=== PATIENT | male | born 1990 | race Hispanic/Latino ===

== ENCOUNTER 2019-03-05 08:04 | Inpatient (IN) | payer SELFPAY ==
[~2019-03-05] VITALS: Ht 157.5 cm; Wt 63.5 kg
[2019-03-05 08:41] LABS: APPEARANCE,URINE Clear (CLEAR); BILIRUBIN,URINE Negative (NEGATIVE); COLOR,URINE Yellow (YELLOW); GLUCOSE, URINE (UA) Negative (NEGATIVE); KETONES,URINE >=80 mg/dL (NEGATIVE); LEUKOCYTE ESTERASE ,URINE Negative (NEGATIVE); NITRATE,URINE Negative (NEGATIVE); OCCULT BLOOD,URINE Negative (NEGATIVE); PH,URINE >=9.0 (5.0-8.0); PROTEIN,URINE Negative (NEGATIVE); UROBILINOGEN,URINE 0.2 mg/dL (0.2-1.0)
[2019-03-05] MEDS ORDERED: FAMOTIDINE/PF 20 MG/2 ML VIAL IV ONE (08:46)
[2019-03-05] MEDS ORDERED: SODIUM CHLORIDE 0.9% 1000ML 1,000 ML IV ONE ×2 (08:47→10:17)
[2019-03-05 08:49] LABS: AMPHET/METH SCREEN,URINE NEGATIVE (NEGATIVE); BARBITURATE SCREEN, URINE NEGATIVE (NEGATIVE); BENZODIAZEPINES SCREEN,URINE NEGATIVE (NEGATIVE); CANNABINOID SCREEN,URINE POSITIVE (NEGATIVE); COCAINE SCREEN,URINE NEGATIVE (NEGATIVE); OPIATE SCREEN,URINE NEGATIVE (NEGATIVE); PHENCYCLIDINE SCREEN,URINE NEGATIVE (NEGATIVE)
[2019-03-05 08:49] LABS: BASOPHILS % (AUTO) 0.8 % (0.0-5.0); EOSINOPHILS % (AUTO) 1.2 % (0.0-8.0); HEMATOCRIT 45.1 % (42-54); LYMPHOCYTES % (AUTO) 8.5 % (21.0-51.0); MEAN CORPUSCULAR HEMOGLOBIN 30.8 pg (27.0-33.0); MEAN CORPUSCULAR HGB CONC 33.6 g/dL (32.0-36.0); MEAN CORPUSCULAR VOLUME 91.6 fL (79-99); MONOCYTES % (AUTO) 3.4 % (3.0-13.0); NEUTROPHILS % (AUTO) 86.1 % (40.0-77.0); PLATELET COUNT (AUTO) 307 K/uL (130-400); RED BLOOD CELL COUNT(AUTO) 4.93 MIL/uL (4.50-6.20); RED CELL DISTRIBUTION WIDTH 13.6 % (11.0-15.5); WHITE BLOOD COUNT (AUTO) 24.4 K/uL (4.8-10.8)
[2019-03-05 08:50] LABS: BACTERIA,URINE Rare /HPF (None Seen); RBC,URINE 0-1 /HPF (0-1); SQUAMOUS EPITHELIAL CELL,UR Rare /HPF (0-2); WBC,URINE 0-1 /HPF (0-1)
[2019-03-05 09:00] LABS: CREATININE 0.9 mg/dL (0.5-1.5); POTASSIUM 3.1 mmol/L (3.5-5.1)
[2019-03-05 09:05] LABS: ALBUMIN 4.7 g/dL (3.5-5.0); BILIRUBIN,TOTAL 0.5 mg/dL (0.2-1.0); TOTAL PROTEIN, SERUM 7.9 g/dL (6.0-8.3)
[2019-03-05] MEDS ORDERED: HYOSCYAMINE SULFATE 0.125 MG TAB.SUBL SL ONE (10:17)
[2019-03-05] MEDS ORDERED: FLU VACC QS2019-20 36MOS UP/PF 60 MCG/0.5 ML ML IM ONE (18:15)
[2019-03-05] MEDS ORDERED: FLU VACC QS2019-20 36MOS UP/PF 60 MCG/0.5 ML ML IM SCH (18:15)
[2019-03-05] MEDS ORDERED: ACETAMINOPHEN EXTRA STRENGTH 500 MG TABLET PO PRN (18:30)
[2019-03-05 18:31] VITALS: BP 133/75
[2019-03-05] MEDS: NS-20 MEQ KCL 1000ML 1,000 ML IV SCH (18:31)
[2019-03-05] MEDS: POLYETHYLENE GLYCOL 3350 17 GM POWD.PACK PO SCH (18:31)
[2019-03-05] MEDS: CEFTRIAXONE SODIUM 2 GM VIAL IVP SCH (19:24)
[2019-03-05 20:15] VITALS: BP 153/81
[2019-03-05] MEDS: FAMOTIDINE/PF 20 MG/2 ML VIAL IV SCH (21:49)
[2019-03-05] MEDS: PROMETHAZINE HCL 25 MG/ML 1ML AMPULE IM PRN (22:27)
[2019-03-06 00:34] VITALS: BP 137/87
[2019-03-06 04:48] VITALS: BP 113/56
[2019-03-06 05:21] LABS: HEMATOCRIT 42.5 % (42-54); MEAN CORPUSCULAR HEMOGLOBIN 31.2 pg (27.0-33.0); MEAN CORPUSCULAR HGB CONC 34.3 g/dL (32.0-36.0); PLATELET COUNT (AUTO) 296 K/uL (130-400); RED BLOOD CELL COUNT(AUTO) 4.67 MIL/uL (4.50-6.20); RED CELL DISTRIBUTION WIDTH 13.6 % (11.0-15.5); WHITE BLOOD COUNT (AUTO) 17.3 K/uL (4.8-10.8)
[2019-03-06 05:34] LABS: CREATININE 0.8 mg/dL (0.5-1.5); POTASSIUM 3.4 mmol/L (3.5-5.1)
[2019-03-06 08:00] VITALS: BP 121/73
[2019-03-06] MEDS ORDERED: PANTOPRAZOLE SODIUM 40 MG TABLET.DR PO SCH (08:45)
[2019-03-06] MEDS: FAMOTIDINE/PF 20 MG/2 ML VIAL IV SCH ×2 (09:23→20:09)
[2019-03-06] MEDS: METOCLOPRAMIDE 10 MG/2 ML VIAL IVP SCH ×2 (09:23→20:08)
[2019-03-06] MEDS: ENOXAPARIN SODIUM 40 MG/0.4 ML SYRINGE SQ SCH (09:24)
[2019-03-06 11:00] VITALS: BP 107/73
[2019-03-06] MEDS: AMOXICILLIN 500 MG CAPSULE PO SCH ×2 (11:35→20:08)
[2019-03-06] MEDS: CLARITHROMYCIN 500 MG TABLET PO SCH ×2 (11:35→20:09)
[2019-03-06] MEDS: NS-20 MEQ KCL 1000ML 1,000 ML IV SCH ×2 (11:35→18:36)
[2019-03-06] MEDS: PROMETHAZINE HCL 25 MG/ML 1ML AMPULE IM PRN ×2 (12:49→20:08)
--- NOTE | 2019-03-06 12:52 | NUR ---
pt vomited a small amount of green emesis aprox. 50cc, phenergan im given.
[2019-03-06 16:00] VITALS: BP 126/67
[2019-03-06] MEDS: POLYETHYLENE GLYCOL 3350 17 GM POWD.PACK PO SCH (18:08)
--- NOTE | 2019-03-06 18:24 | NUR ---
tanmay note pt resides with spouse, independent with adls and ambulation. no dme. dc plan is back to home. paris huitron info provided. Addendum: 03/06/19 at 1826 by HARVEY ALCALA CM Amended: Links added.
[2019-03-06] MEDS: CEFTRIAXONE SODIUM 2 GM VIAL IVP SCH (18:31)
[2019-03-06 20:03] VITALS: BP 130/70
[2019-03-07] VITALS (7 sets, daily range): BP systolic 108–155; BP diastolic 60–94
[2019-03-07 05:41] LABS: BASOPHILS % (AUTO) 0.5 % (0.0-5.0); EOSINOPHILS % (AUTO) 0.4 % (0.0-8.0); HEMATOCRIT 38.8 % (42-54); LYMPHOCYTES % (AUTO) 22.7 % (21.0-51.0); MEAN CORPUSCULAR HEMOGLOBIN 31.5 pg (27.0-33.0); MEAN CORPUSCULAR HGB CONC 33.9 g/dL (32.0-36.0); MEAN CORPUSCULAR VOLUME 92.9 fL (79-99); NEUTROPHILS % (AUTO) 69.4 % (40.0-77.0); NUCLEATED RED BLOOD CELLS 0.1 % (0.0-0.19); PLATELET COUNT (AUTO) 223 K/uL (130-400); RED BLOOD CELL COUNT(AUTO) 4.18 MIL/uL (4.50-6.20); RED CELL DISTRIBUTION WIDTH 13.8 % (11.0-15.5); WHITE BLOOD COUNT (AUTO) 10.1 K/uL (4.8-10.8)
[2019-03-07 05:53] LABS: CREATININE 0.8 mg/dL (0.5-1.5)
[2019-03-07] MEDS: AMOXICILLIN 500 MG CAPSULE PO SCH ×2 (10:26→19:46)
[2019-03-07] MEDS: CLARITHROMYCIN 500 MG TABLET PO SCH ×2 (10:26→19:46)
[2019-03-07] MEDS: FAMOTIDINE/PF 20 MG/2 ML VIAL IV SCH ×2 (10:27→19:45)
[2019-03-07] MEDS: METOCLOPRAMIDE 10 MG/2 ML VIAL IVP SCH ×2 (10:27→19:45)
[2019-03-07] MEDS: ENOXAPARIN SODIUM 40 MG/0.4 ML SYRINGE SQ SCH (11:59)
[2019-03-07] MEDS: NS-20 MEQ KCL 1000ML 1,000 ML IV SCH (11:59)
--- NOTE | 2019-03-07 14:35 | NUR ---
PATIENT NOT TOLERATING ORAL DIET PATIENT RECIEVED FULL LIQUID TRAY. APPROXIMATELY 10 MINUTES AFTER EATING, PATIENT REPORTS NAUSEA AND SEVERE "THROBBING HEADACHE". INFORMED DR. SETHI. ORDERED CT HEAD. PATIENT GIVEN MORPHINE 2MG IV AND PHENERGAN 25MG IM.
[2019-03-07] MEDS: PROMETHAZINE HCL 25 MG/ML 1ML AMPULE IM PRN (14:54)
[2019-03-07] MEDS ORDERED: MORPHINE SULFATE 2 MG/ML 1ML SYG IVP SCH (15:00)
--- NOTE | 2019-03-07 15:00 | NUR ---
SYMPTOMS PATIENT VOMITED DESPITE AND REPORTS HEADACHE IS SEVERE. VITAL SIGNS ARE STABLE. PATIENT IS IN VISIBLE DISTRESS, CRYING, GROANING. PATIENT REPORTS TINGLING TO TOES AND FINGERS, THEN PATIENT STATES HE CANT MOVE RIGHT HAND. INFORMED DR. SETHI AND ORDERED TO GET CT HEAD DONE STAT WITHOUT CONTRAST. CALLED RADIOLOGY [address] HEAD HAS TO BE DONE WITHOUT CONTRAST AND PATIENT HAS TO BE TAKEN DOWN NOW AND WAS TOLD "WE HAVE A LOT OF STAT ORDERS RIGHT NOW." INFORMED DIRECTOR MELINA OF THIS ISSUE.
[2019-03-07] MEDS: MORPHINE SULFATE 2 MG/ML 1ML SYG IVP PRN ×2 (15:04→19:46)
[2019-03-07] MEDS ORDERED: LORAZEPAM 2 MG/ML 1 ML VIAL ONE (15:27)
[2019-03-07] MEDS ORDERED: CALCIUM GLUCONATE 1 GM in SODIUM CHLORIDE 0.9% 50 ML IV PRN (15:30)
--- NOTE | 2019-03-07 15:30 | NUR ---
ATIVAN PATIENT APPEARS ANXIOUS DUE TO CONTINUED HEADACHE AND NAUSEA. DR. SETHI ORDERED TO GIVEN ONE TIME DOSE OF ATIVAN 1 MG IV.
[2019-03-07] MEDS ORDERED: LORAZEPAM 2 MG/ML 1 ML VIAL IM STA (15:40)
--- NOTE | 2019-03-07 16:00 | NUR ---
PATIENT RETURN TO FLOOR PATIENT RETURNED FROM CT HEAD PROCEDURE. PATIENT RECONNECTED TO IV FLUIDS. PATIENT REPORTS HEADACHE STILL PRESENT, BUT FEELS ONLY A LITTLE BETTER. INFORMED PATIENT MD ORDERED TO KEEP PATIENT NPO, PATIENT VERBALIZED UNDERSTANDING. WILL CONTINUE TO MONITOR.
[2019-03-07 16:06] LABS: HEMATOCRIT 43.8 % (42-54); MEAN CORPUSCULAR HEMOGLOBIN 31.2 pg (27.0-33.0); MEAN CORPUSCULAR HGB CONC 34.3 g/dL (32.0-36.0); PLATELET COUNT (AUTO) 260 K/uL (130-400); RED BLOOD CELL COUNT(AUTO) 4.81 MIL/uL (4.50-6.20); RED CELL DISTRIBUTION WIDTH 13.5 % (11.0-15.5); WHITE BLOOD COUNT (AUTO) 12.1 K/uL (4.8-10.8)
[2019-03-07 16:16] LABS: MAGNESIUM 1.9 mg/dL (1.80-2.40)
--- NOTE | 2019-03-07 16:45 | NUR ---
PATIENT ASLEEP PATIENT IS ASLEEP IN BED, I WOKE UP PATIENT TO SEE HOW HE FEELS AND PATIENTS REPLIED "I FEEL ONLY A LITTLE BETTER, NOT THROWING UP MUCH ANYMORE. MY HEADACHE IS STILL THERE."
[2019-03-07] MEDS ORDERED: BUTALB/ACETAMINOPHEN/CAFFEINE 1 EACH TABLET PO PRN (18:00)
[2019-03-07] MEDS ORDERED: BUTALB/ACETAMINOPHEN/CAFFEINE 1 EACH TABLET PO ONE (18:05)
[2019-03-07] MEDS: POLYETHYLENE GLYCOL 3350 17 GM POWD.PACK PO SCH (18:30)
[2019-03-07] MEDS ORDERED: METOCLOPRAMIDE 10 MG/2 ML VIAL IVP SCH (19:15)
[2019-03-07] MEDS: CEFTRIAXONE SODIUM 2 GM VIAL IVP SCH (21:36)
[2019-03-08 03:30] VITALS: BP 110/56
[2019-03-08 05:10] LABS: BASOPHILS % (AUTO) 0.5 % (0.0-5.0); EOSINOPHILS % (AUTO) 0.1 % (0.0-8.0); HEMATOCRIT 40.7 % (42-54); LYMPHOCYTES % (AUTO) 24.4 % (21.0-51.0); MEAN CORPUSCULAR HEMOGLOBIN 31.1 pg (27.0-33.0); MEAN CORPUSCULAR HGB CONC 34.1 g/dL (32.0-36.0); MEAN CORPUSCULAR VOLUME 91.3 fL (79-99); MONOCYTES % (AUTO) 7.1 % (3.0-13.0); NEUTROPHILS % (AUTO) 67.9 % (40.0-77.0); PLATELET COUNT (AUTO) 271 K/uL (130-400); RED BLOOD CELL COUNT(AUTO) 4.46 MIL/uL (4.50-6.20); RED CELL DISTRIBUTION WIDTH 13.4 % (11.0-15.5); WHITE BLOOD COUNT (AUTO) 11.9 K/uL (4.8-10.8)
[2019-03-08 05:24] LABS: CARBON DIOXIDE 23 mmol/L (21-32); CHLORIDE 106 mmol/L (101-111); CREATININE 0.9 mg/dL (0.5-1.5); GLOMERULAR FILTR. RATE CALC 106 mL/min (>60); GLUCOSE,RANDOM 80 mg/dL (70-105); POTASSIUM 4.1 mmol/L (3.5-5.1); SODIUM SERUM 142 mmol/L (136-145); UREA NITROGEN, BLOOD 9 mg/dL (7-18)
[2019-03-08 08:02] VITALS: BP 121/75
[2019-03-08] MEDS: METOCLOPRAMIDE 10 MG/2 ML VIAL IVP SCH ×2 (12:06→19:43)
[2019-03-08] MEDS: FAMOTIDINE/PF 20 MG/2 ML VIAL IV SCH (12:06)
[2019-03-08 12:08] VITALS: BP 128/65
[2019-03-08] MEDS: ENOXAPARIN SODIUM 40 MG/0.4 ML SYRINGE SQ SCH (12:10)
[2019-03-08] MEDS: CLARITHROMYCIN 500 MG TABLET PO SCH (12:11)
[2019-03-08] MEDS: AMOXICILLIN 500 MG CAPSULE PO SCH (12:11)
[2019-03-08] MEDS: SUCRALFATE 1 GM/10 ML PO SCH ×2 (15:00→19:46)
[2019-03-08 16:26] VITALS: BP 132/80
[2019-03-08] MEDS: PHARMACY COMMUNICATION MISC SCH ×2 (16:30→22:22)
[2019-03-08] MEDS: POLYETHYLENE GLYCOL 3350 17 GM POWD.PACK PO SCH (18:30)
[2019-03-08] MEDS: DEXTROSE 5 % AND 0.9 % NACL 1,000 ML IV SCH (18:32)
[2019-03-08 19:07] VITALS: BP 132/69
[2019-03-08] MEDS: PANTOPRAZOLE SODIUM 40 MG TABLET.DR PO SCH (19:43)
[2019-03-08] MEDS: CEFTRIAXONE SODIUM 2 GM VIAL IVP SCH (19:43)
[2019-03-08 23:36] VITALS: BP 124/69
[2019-03-09] MEDS: DEXTROSE 5 % AND 0.9 % NACL 1,000 ML IV SCH ×3 (00:02→22:01)
[2019-03-09] MEDS: SUCRALFATE 1 GM/10 ML PO SCH ×4 (02:25→22:00)
[2019-03-09 03:36] VITALS: BP 112/63
[2019-03-09 05:14] LABS: BASOPHILS % (AUTO) 0.9 % (0.0-5.0); HEMATOCRIT 39.3 % (42-54); MEAN CORPUSCULAR HEMOGLOBIN 31.8 pg (27.0-33.0); MEAN CORPUSCULAR HGB CONC 34.8 g/dL (32.0-36.0); MEAN CORPUSCULAR VOLUME 91.5 fL (79-99); MONOCYTES % (AUTO) 9.1 % (3.0-13.0); NUCLEATED RED BLOOD CELLS 0.1 % (0.0-0.19); PLATELET COUNT (AUTO) 250 K/uL (130-400); RED BLOOD CELL COUNT(AUTO) 4.29 MIL/uL (4.50-6.20); RED CELL DISTRIBUTION WIDTH 13.4 % (11.0-15.5); WHITE BLOOD COUNT (AUTO) 6.9 K/uL (4.8-10.8)
[2019-03-09 06:05] LABS: CREATININE 0.9 mg/dL (0.5-1.5)
[2019-03-09 07:53] VITALS: BP 121/78
[2019-03-09] MEDS: PHARMACY COMMUNICATION MISC SCH (08:04)
[2019-03-09] MEDS: METOCLOPRAMIDE 10 MG/2 ML VIAL IVP SCH ×2 (08:12→22:01)
[2019-03-09] MEDS: PANTOPRAZOLE SODIUM 40 MG TABLET.DR PO SCH ×2 (08:12→22:00)
[2019-03-09] MEDS: ENOXAPARIN SODIUM 40 MG/0.4 ML SYRINGE SQ SCH (08:13)
[2019-03-09 11:42] VITALS: BP 127/86
[2019-03-09] MEDS ORDERED: DICYCLOMINE HCL 20 MG TAB PO PRN (11:45)
[2019-03-09 16:33] VITALS: BP 136/91
[2019-03-09] MEDS: CEFTRIAXONE SODIUM 2 GM VIAL IVP SCH (19:50)
[2019-03-09 20:00] VITALS: BP 122/82
[2019-03-09] MEDS ORDERED: ALPRAZOLAM 0.25 MG TABLET ONE (22:25)
--- NOTE | 2019-03-09 22:26 | NUR ---
ANXIETY C/O ANXIETY, PER PATIENT GETS ANXIETY ATTACKS AT HOME DESCRIBED PER PATIENT, TEMP 98.4, PULSE 92, RESP 20, B/P 159/96, SAT 100 % ON R/A, CALLED [facility] FLOORPERSON FROYLAN Smith WITH ORDERS, XANAX 0.25 MG PO GIVEN
[2019-03-09] MEDS ORDERED: ALPRAZOLAM 0.25 MG TABLET PO PRN (22:30)
--- NOTE | 2019-03-09 23:25 | NUR ---
MED EFFECT PATIENT RESTING COMFORTABLY, IVF INFUSING WELL
[2019-03-10] VITALS (8 sets, daily range): BP systolic 124–143; BP diastolic 69–91
[2019-03-10] MEDS: PHARMACY COMMUNICATION MISC SCH ×4 (00:21→23:56)
[2019-03-10] MEDS: SUCRALFATE 1 GM/10 ML PO SCH ×4 (03:35→20:24)
[2019-03-10 05:17] LABS: BASOPHILS % (AUTO) 0.6 % (0.0-5.0); EOSINOPHILS % (AUTO) 1.9 % (0.0-8.0); LYMPHOCYTES % (AUTO) 46.9 % (21.0-51.0); MEAN CORPUSCULAR HEMOGLOBIN 31.5 pg (27.0-33.0); MEAN CORPUSCULAR HGB CONC 34.8 g/dL (32.0-36.0); MEAN CORPUSCULAR VOLUME 90.4 fL (79-99); MONOCYTES % (AUTO) 7.7 % (3.0-13.0); NEUTROPHILS % (AUTO) 42.9 % (40.0-77.0); NUCLEATED RED BLOOD CELLS 0.1 % (0.0-0.19); PLATELET COUNT (AUTO) 263 K/uL (130-400); RED CELL DISTRIBUTION WIDTH 13.3 % (11.0-15.5); WHITE BLOOD COUNT (AUTO) 6.9 K/uL (4.8-10.8)
[2019-03-10 05:31] LABS: CREATININE 0.8 mg/dL (0.5-1.5); MAGNESIUM 1.8 mg/dL (1.80-2.40); POTASSIUM 3.2 mmol/L (3.5-5.1)
[2019-03-10] MEDS: DEXTROSE 5 % AND 0.9 % NACL 1,000 ML IV SCH ×2 (07:00→17:49)
[2019-03-10] MEDS: METOCLOPRAMIDE 10 MG/2 ML VIAL IVP SCH ×2 (08:49→20:26)
[2019-03-10] MEDS: ENOXAPARIN SODIUM 40 MG/0.4 ML SYRINGE SQ SCH (08:49)
[2019-03-10] MEDS: PANTOPRAZOLE SODIUM 40 MG TABLET.DR PO SCH ×2 (08:49→20:24)
[2019-03-10] MEDS ORDERED: CHLORDIAZEPOXIDE HCL 5 MG CAPSULE PO PRN (13:00)
[2019-03-10] MEDS ORDERED: NICOTINE 21 MG/ 24 HR PATCH TD ONE (15:18)
[2019-03-10] MEDS: METRONIDAZOLE 500 MG TABLET PO SCH ×2 (15:19→20:24)
[2019-03-10] MEDS: NICOTINE 21 MG/ 24 HR PATCH TD SCH (15:21)
--- NOTE | 2019-03-10 15:45 | NUR ---
Nutrition intervention: Nutrition notification for LOS x5. pt admitted for intractable n/v, gastritis, bradycardia. Pt currently on full liquid diet with good po intake. Pt reports he continues to have belching but feels good every time he does. N/V is resolving. Pt reports no diarrhea as of today. Pt with multiple questions on tips of how to stop smoking. Spoke to pt's RN-Brown, about pt's questions and concerns. RN to address concerns with pt. Recommendations: When medically feasible, advance diet therapy to GI Soft/bland diet for optimal nutritional therapy. Consult RD as nutrition concerns arise. Addendum: 03/10/19 at [address] Amended: Links added.
[2019-03-10] MEDS: CEFTRIAXONE SODIUM 2 GM VIAL IVP SCH (18:19)
[2019-03-11] MEDS: SUCRALFATE 1 GM/10 ML PO SCH ×2 (02:49→10:19)
[2019-03-11] MEDS: DEXTROSE 5 % AND 0.9 % NACL 1,000 ML IV SCH (02:51)
[2019-03-11 04:00] VITALS: BP 130/83
[2019-03-11] MEDS: METRONIDAZOLE 500 MG TABLET PO SCH (04:31)
[2019-03-11 07:28] VITALS: BP 139/73
[2019-03-11] MEDS: ENOXAPARIN SODIUM 40 MG/0.4 ML SYRINGE SQ SCH (09:00)
[2019-03-11] MEDS: PANTOPRAZOLE SODIUM 40 MG TABLET.DR PO SCH (10:19)
[2019-03-11] MEDS: NICOTINE 21 MG/ 24 HR PATCH TD SCH (10:19)
[2019-03-11] MEDS: METOCLOPRAMIDE 10 MG/2 ML VIAL IVP SCH (10:21)
[2019-03-11] MEDS ORDERED: METR-172 PO (10:24)
[2019-03-11] MEDS ORDERED: HYDR-3421 PO (10:24)
[2019-03-11] MEDS ORDERED: OMEP10CA5 PO (10:24)
[2019-03-11 10:49] VITALS: BP 152/96
--- NOTE | 2019-03-11 11:50 | NUR ---
DISCHARGE DISCHARGE TEACHING PROVIDED TO PATIENT REGARDING RX (OMEPRAZOLE, HYDROXYZINE, FLAGYL), H. PYLORI CARE AT HOME, SMOKING CESSATION, N/V CARE AT HOME, SOFT/BLAND DIET. INSTRUCTED PATIENT TO SCHEDULE 2 WEEK FOLLOW UP APPOINTMENT WITH PRIMARY MD. PATIENT VERBALIZED UNDERSTANDING OF DISCHARGE TEACHING. PATIENT REPORTS TOLERATING ORAL DIET WELL, IS HAVING NORMAL AND SOFT BOWEL MOVEMENTS, AND NO NAUSEA/VOMITING EPISODES. REMOVED 20G IV FROM RIGHT AC, CATHETER TIP INTACT. PATIENT STATES HE HAS PRIVATE VEHICLE IN HOSPITAL PARKING LOT AND WILL DRIVE HIMSELF HOME. PATIENT IS ALERT AND ORIENTED TO PERSON, PLACE, AND TIME, ABLE TO WALK INDEPENDENTLY, APPEARS COMFORTABLE AND AT EASE AND PATIENT ALSO REPORTS NO DISCOMFORTS. I FEEL COMFORTABLE WITH ALLOWING PATIENT TO DRIVE HIMSELF HOME
== END 2019-03-11 12:00 | disposition home or self-care (01) | DRG 392 ==
LOC: EDH 08:04 → EDHIP 08:05 → OBSVTOIN 08:05 → 4AH 16:53
PROVIDERS: ADMIT Family Medicine; ATTEND Family Medicine
DX: R10.13 Epigastric pain (principal); E86.9 Volume depletion, unspecified; D72.829 Elevated white blood cell count, unspecified; F41.9 Anxiety disorder, unspecified; Z72.0 Tobacco use; F12.10 Cannabis abuse, uncomplicated
CPT/HCPCS: 36415; 70450; 71045; 74176; 76700; 80048; 80053; 80305; 81001; 82150; 83605; 83630; 83690; 83735; 84145; 85025; 85027; 86677; 87040; 87046; 87804; G0378; J0610; J0696; J1650; J2060; J2550; J2765; J3480; J3490; J7030; J7042; Q2035

== ENCOUNTER 2019-05-16 04:22 | Inpatient (IN) | payer SELFPAY ==
[~2019-05-16] VITALS: Ht 157.5 cm; Wt 55.4 kg
[~2019-05-16 04:22] MED LIST: HYDR-3421 PO; METR-172 PO; OMEP10CA5 PO
[2019-05-16 05:05] LABS: BASOPHILS % (AUTO) 0.4 % (0.0-5.0); EOSINOPHILS % (AUTO) 1.3 % (0.0-8.0); HEMATOCRIT 46.3 % (42-54); LYMPHOCYTES % (AUTO) 25.7 % (21.0-51.0); MEAN CORPUSCULAR HEMOGLOBIN 30.9 pg (27.0-33.0); MEAN CORPUSCULAR VOLUME 88.2 fL (79-99); NEUTROPHILS % (AUTO) 67.1 % (40.0-77.0); PLATELET COUNT (AUTO) 358 K/uL (130-400); RED BLOOD CELL COUNT(AUTO) 5.25 MIL/uL (4.50-6.20); RED CELL DISTRIBUTION WIDTH 13.1 % (11.0-15.5)
[2019-05-16] MEDS ORDERED: SODIUM CHLORIDE 0.9% 1000ML 1,000 ML IV ONE ×3 (05:08→08:53)
[2019-05-16 05:17] LABS: POTASSIUM 3.2 mmol/L (3.5-5.1)
[2019-05-16 05:21] LABS: ALBUMIN 4.5 g/dL (3.5-5.0); BILIRUBIN,TOTAL 0.4 mg/dL (0.2-1.0)
[2019-05-16] MEDS ORDERED: ONDANSETRON HCL 4 MG/2 ML VIAL ONE ×2 (05:31→08:53)
[2019-05-16] MEDS ORDERED: LEVOFLOXACIN 750 MG/D5W 150 ML 150 ML ONE (05:54)
[2019-05-16 06:01] LABS: APPEARANCE,URINE Clear (CLEAR); BILIRUBIN,URINE Negative (NEGATIVE); COLOR,URINE Yellow (YELLOW); GLUCOSE, URINE (UA) Negative (NEGATIVE); KETONES,URINE 40 mg/dL (NEGATIVE); LEUKOCYTE ESTERASE ,URINE Negative (NEGATIVE); NITRATE,URINE Negative (NEGATIVE); OCCULT BLOOD,URINE Negative (NEGATIVE); PH,URINE >=9.0 (5.0-8.0); PROTEIN,URINE Negative (NEGATIVE)
[2019-05-16 07:44] LABS: AMPHET/METH SCREEN,URINE NEGATIVE (NEGATIVE); BARBITURATE SCREEN, URINE NEGATIVE (NEGATIVE); BENZODIAZEPINES SCREEN,URINE NEGATIVE (NEGATIVE); CANNABINOID SCREEN,URINE POSITIVE (NEGATIVE); COCAINE SCREEN,URINE NEGATIVE (NEGATIVE); OPIATE SCREEN,URINE NEGATIVE (NEGATIVE); PHENCYCLIDINE SCREEN,URINE NEGATIVE (NEGATIVE)
[2019-05-16] MEDS ORDERED: POTASSIUM BICARB/CIT AC 25 MEQ TABLET.EFF ONE (08:18)
[2019-05-16] MEDS ORDERED: ACETAMINOPHEN 325 MG TAB PO PRN (08:30)
[2019-05-16] MEDS: METRONIDAZOLE 500MG/100ML BAG 100 ML IV SCH ×2 (08:30→18:36)
[2019-05-16] MEDS: DEXTROSE 5 % AND 0.9 % NACL 1,000 ML IV SCH ×2 (08:45→16:45)
[2019-05-16] MEDS: FAMOTIDINE/PF 20 MG/2 ML VIAL IV SCH ×2 (09:00→20:31)
[2019-05-16] MEDS ORDERED: DEXTROSE 5 % AND 0.9 % NACL 1,000 ML IV ONE (09:09)
[2019-05-16 09:38] LABS: OCCULT BLOOD STOOL SINGLE ONLY POSITIVE (NEGATIVE)
[2019-05-16 09:55] VITALS: BP 152/79
--- NOTE | 2019-05-16 10:30 | NUR ---
NOTE ARRIVED FROM ER AT THIS TIME. C/O N/V ABDOMINAL PAIN FROM HOME. ER COLLECTED STOOL AND SENT FOR TESTING. HE HAS BEEN NAUSEATED SINCE YESTERDAY AND WITH WBC ELEVATED. HAS H/O OF EPISODE LIKE THIS WHEN HE WAS LAST ADMITTED IN FEBRUARY AND WAS DX WITH H. PYLORI. STATES HE COMPLETED HIS REGIMEN BUT HE NEVER FOLLOWED UP WITH PRIMARY M.D. OR GI DOCTOR. DENIES FEVER. STARTED ON IVF FLUIDS AND IV ABX. WILL REMAIN NPO FOR NOW.
[2019-05-16 11:16] VITALS: BP 134/96
[2019-05-16] MEDS: ONDANSETRON HCL 4 MG/2 ML VIAL IV PRN (12:16)
[2019-05-16 16:00] VITALS: BP 143/80
--- NOTE | 2019-05-16 16:19 | NUR ---
DCP CM met with pt discussed dc plans. Pt is independent prior to admission, lives at home with spouse. Denies any equipments/services. Feels safe to go back home, still drives, spouse able to assist with transportation and needs as necessary. Pt is a selfpay, [facility] assisting, given [employer] resources packet. DC plan to home once stable. CM to cont to follow up. Addendum: 05/16/19 at 1620 by JOSE CANAS LVN CM Amended: Links added.
[2019-05-16] MEDS: POTASSIUM CHLORIDE 20MEQ/100ML 100 ML IV PRN (18:37)
[2019-05-16 20:00] VITALS: BP 163/79
[2019-05-16] MEDS ORDERED: KETOROLAC TROMETHAMINE 15MG/ML IV PRN (20:30)
[2019-05-16 23:26] VITALS: BP 100/52
[2019-05-17] MEDS: METRONIDAZOLE 500MG/100ML BAG 100 ML IV SCH ×4 (00:40→23:48)
[2019-05-17 03:29] VITALS: BP 122/62
--- NOTE | 2019-05-17 04:03 | NUR ---
CALM Pt remains calm,respirations even and unlabored.Voiced no complaints of pain or discomfort.
[2019-05-17] MEDS: DEXTROSE 5 % AND 0.9 % NACL 1,000 ML IV SCH ×4 (04:34→23:48)
[2019-05-17 05:40] LABS: BASOPHILS % (AUTO) 0.2 % (0.0-5.0); HEMATOCRIT 42.1 % (42-54); MEAN CORPUSCULAR HEMOGLOBIN 30.9 pg (27.0-33.0); MEAN CORPUSCULAR HGB CONC 34.4 g/dL (32.0-36.0); MEAN CORPUSCULAR VOLUME 89.8 fL (79-99); MONOCYTES % (AUTO) 6.6 % (3.0-13.0); NEUTROPHILS % (AUTO) 79.7 % (40.0-77.0); PLATELET COUNT (AUTO) 292 K/uL (130-400); RED BLOOD CELL COUNT(AUTO) 4.69 MIL/uL (4.50-6.20); RED CELL DISTRIBUTION WIDTH 13.3 % (11.0-15.5)
[2019-05-17] MEDS: LEVOFLOXACIN 500 MG/D5W 100 ML 100 ML IV SCH (05:52)
[2019-05-17 08:03] VITALS: BP 128/76
[2019-05-17] MEDS: FAMOTIDINE/PF 20 MG/2 ML VIAL IV SCH ×2 (08:24→19:45)
[2019-05-17 11:38] VITALS: BP 102/61
[2019-05-17 16:00] VITALS: BP 92/51
[2019-05-17] MEDS: CEFTRIAXONE SODIUM 1 GM IVP SCH (16:14)
[2019-05-17] MEDS: ONDANSETRON HCL 4 MG/2 ML VIAL IV PRN (17:36)
[2019-05-17 20:00] VITALS: BP 134/92
--- NOTE | 2019-05-17 20:00 | NUR ---
ANXIOUS Received pt anxious,complaining of nausea,abdominal pain.Pt very restless.Toradol given for abdominal pain,offerred relief.
--- NOTE | 2019-05-17 22:53 | NUR ---
SHOWER Pt requesting a warm shower,disconnected from his ivf so he can take a shower.
[2019-05-17 23:29] VITALS: BP 98/54
[2019-05-18 03:32] VITALS: BP 111/51
[2019-05-18] MEDS: CEFTRIAXONE SODIUM 1 GM IVP SCH ×2 (04:39→17:07)
[2019-05-18 05:14] LABS: BASOPHILS % (AUTO) 0.4 % (0.0-5.0); EOSINOPHILS % (AUTO) 0.1 % (0.0-8.0); HEMATOCRIT 37.9 % (42-54); LYMPHOCYTES % (AUTO) 25.4 % (21.0-51.0); MEAN CORPUSCULAR HEMOGLOBIN 30.5 pg (27.0-33.0); MEAN CORPUSCULAR HGB CONC 33.5 g/dL (32.0-36.0); MEAN CORPUSCULAR VOLUME 91.1 fL (79-99); MONOCYTES % (AUTO) 7.7 % (3.0-13.0); PLATELET COUNT (AUTO) 247 K/uL (130-400); RED BLOOD CELL COUNT(AUTO) 4.16 MIL/uL (4.50-6.20); RED CELL DISTRIBUTION WIDTH 13.3 % (11.0-15.5); WHITE BLOOD COUNT (AUTO) 11.6 K/uL (4.8-10.8)
[2019-05-18 05:17] LABS: HEMOGLOBIN A1C 5.4 % (4.0-6.0)
[2019-05-18 05:26] LABS: POTASSIUM 3.2 mmol/L (3.5-5.1)
[2019-05-18] MEDS: POTASSIUM CHLORIDE 20MEQ/100ML 100 ML IV PRN ×2 (05:47→09:25)
[2019-05-18] MEDS: LIDOCAINE HCL-MPF 1% 2ML VIAL IV PRN ×2 (05:47→09:25)
[2019-05-18] MEDS: LEVOFLOXACIN 500 MG/D5W 100 ML 100 ML IV SCH (06:33)
--- NOTE | 2019-05-18 06:39 | NUR ---
STATUS Pt awake,alert,denies nausea or vomitting.
[2019-05-18 07:47] VITALS: BP 104/61
[2019-05-18] MEDS: METRONIDAZOLE 500MG/100ML BAG 100 ML IV SCH ×2 (09:24→17:07)
[2019-05-18] MEDS: FAMOTIDINE/PF 20 MG/2 ML VIAL IV SCH ×2 (09:26→20:35)
[2019-05-18 11:49] VITALS: BP 96/53
[2019-05-18 15:53] VITALS: BP 103/57
[2019-05-18] MEDS: DEXTROSE 5 %-0.45 % NACL 1,000 ML IV SCH (17:21)
--- NOTE | 2019-05-18 18:42 | NUR ---
HAS REPORTED 2 SM. LOOSE STOOLS TODAY.
[2019-05-18 19:38] VITALS: BP 124/53
[2019-05-19] VITALS: BP 115/67
[2019-05-19] MEDS: METRONIDAZOLE 500MG/100ML BAG 100 ML IV SCH ×2 (00:40→08:47)
[2019-05-19 04:00] VITALS: BP 106/60
[2019-05-19 04:26] LABS: EOSINOPHILS % (AUTO) 0.7 % (0.0-8.0); HEMATOCRIT 35.9 % (42-54); LYMPHOCYTES % (AUTO) 47.1 % (21.0-51.0); MEAN CORPUSCULAR HEMOGLOBIN 30.9 pg (27.0-33.0); MEAN CORPUSCULAR HGB CONC 33.7 g/dL (32.0-36.0); MEAN CORPUSCULAR VOLUME 91.6 fL (79-99); MONOCYTES % (AUTO) 6.3 % (3.0-13.0); NEUTROPHILS % (AUTO) 44.7 % (40.0-77.0); PLATELET COUNT (AUTO) 247 K/uL (130-400); RED BLOOD CELL COUNT(AUTO) 3.92 MIL/uL (4.50-6.20); RED CELL DISTRIBUTION WIDTH 13.3 % (11.0-15.5); WHITE BLOOD COUNT (AUTO) 8.3 K/uL (4.8-10.8)
[2019-05-19] MEDS: CEFTRIAXONE SODIUM 1 GM IVP SCH (04:44)
[2019-05-19 04:53] LABS: CREATININE 0.9 mg/dL (0.5-1.5); POTASSIUM 3.2 mmol/L (3.5-5.1)
--- NOTE | 2019-05-19 05:14 | NUR ---
NO COMPLAINTS Pt had an uneventful night,voiced no complaints.
[2019-05-19] MEDS: DEXTROSE 5 %-0.45 % NACL 1,000 ML IV SCH (05:20)
[2019-05-19] MEDS: POTASSIUM CHLORIDE 20MEQ/100ML 100 ML IV PRN (05:33)
[2019-05-19] MEDS: LIDOCAINE HCL-MPF 1% 2ML VIAL IV PRN (05:33)
[2019-05-19] MEDS: LEVOFLOXACIN 500 MG/D5W 100 ML 100 ML IV SCH (06:08)
[2019-05-19 08:00] VITALS: BP 116/61
--- NOTE | 2019-05-19 08:00 | NUR ---
AM SHIFT ASSESSMENT.SLEPT WELL, FEELING BETTER.
[2019-05-19] MEDS: FAMOTIDINE/PF 20 MG/2 ML VIAL IV SCH (08:47)
[2019-05-19] MEDS ORDERED: LEVO500T89 PO (10:56)
[2019-05-19] MEDS ORDERED: METR-172 PO (10:56)
--- NOTE | 2019-05-19 13:10 | NUR ---
DISCHARGED NOW USING TEACH BACK, RX. AND DC INST. GIVEN WITH SIG. OTHER PRESENT. VERBALIZES UNDERSTANDING. WILL FOLLOW UP WITH PCP.SALINE LOCK REMOVED AND STATES NO FURTHER LOOSE STOOLS.
== END 2019-05-19 13:10 | disposition home or self-care (01) | DRG 392 ==
LOC: EDH 04:22 → EDHIP 04:23 → 3BH 09:55
PROVIDERS: ADMIT Internal Medicine; ATTEND Internal Medicine
DX: A09 Infectious gastroenteritis and colitis, unspecified (principal); E87.2 Acidosis; E87.6 Hypokalemia; F12.10 Cannabis abuse, uncomplicated; M19.90 Unspecified osteoarthritis, unspecified site; Z82.49 Family history of ischemic heart disease and other diseases of the circulatory system
CPT/HCPCS: 36415; 74176; 80048; 80053; 80305; 81003; 82270; 82948; 83036; 83605; 83690; 83735; 84132; 84145; 85025; 87040; 87046; 87077; 87177; 87186; 87324; 87507; G0378; J0696; J1885; J1956; J2405; J3480; J3490; J7030; J7042